=== PATIENT | female | born 1960 | race Caucasian/White ===

== ENCOUNTER 2022-12-05 09:41 | Outpatient (CLI) | payer BC, SELFPAY ==
--- NOTE | 2022-12-05 10:00 | W.ANESCHARGE ---
Anesthesia Charges Start Date/Time Anesthesia Start Date: 12/05/22 Anesthesia Start Time: 10:36 Stop Date/Time Anesthesia Stop Date: 12/05/22 Anesthesia Stop Time: 11:33
--- NOTE | 2022-12-05 11:36 | W.ANESCHARGE ---
Anesthesia Charges Start Date/Time Anesthesia Start Date: 12/05/22 Anesthesia Start Time: 10:36 Stop Date/Time Anesthesia Stop Date: 12/05/22 Anesthesia Stop Time: 11:33
== END 2022-12-05 09:42 | disposition home or self-care (01) ==
LOC: OP CLINIC 09:42
PROVIDERS: PCP Family Medicine; Visit Provider Surgery
DX: D50.9 Iron deficiency anemia, unspecified (principal); K63.5 Polyp of colon; K92.2 Gastrointestinal hemorrhage, unspecified; K22.89 Other specified disease of esophagus; K44.9 Diaphragmatic hernia without obstruction or gangrene; K29.70 Gastritis, unspecified, without bleeding
CPT/HCPCS: 43239; 45385; 813; 88305; J2704; J3490

== ENCOUNTER 2023-04-25 11:06 | Outpatient (CLI) | payer BC, SELFPAY ==
[2023-04-25 11:27] VITALS: BP 102/64; PULSE 88; RESP 18; O2SAT 90
[2023-04-25] MEDS: TETRACAINE 0.5% OPHTH 1 DROP EYE-BOTH ×3 (11:31→11:51)
[2023-04-25] MEDS: BRIMONIDINE TARTRATE 0.2% OPHTH 1 DROP EYE-BOTH ×2 (11:34→12:02)
--- NOTE | 2023-04-25 12:16 | W.PM.OPTPROC ---
Procedure Note Date of procedure: 04/25/23 Will [facility] bill your pro fee for this procedure?: Yes Procedure Description: SURGEON: Esperanza Romero MD PREOPERATIVE DIAGNOSIS: Posterior capsular opacity, right and left eye POSTOPERATIVE DIAGNOSIS: Posterior capsular opacity, right and left eye PROCEDURE: YAG laser capsulotomy, both eyes ANESTHESIA: Topical. ESTIMATED BLOOD LOSS: None PATHOLOGY SPECIMEN: None COMPLICATIONS: None INDICATIONS: See consult note for details. The risks, benefits and alternatives of the procedure were explained to the patient, who elected to proceed and signed informed consent to do so. PROCEDURE: The patient was brought to the pre-holding area where the right and left eyes were identified as the operative eyes. I placed my initials above the eyes. The following was given in both eyes: The patient received 2 sets of 1 drop of 0.5% tetracaine and 1 drop of 1% tropicamide. They also received 1 drop of 0.2% brimonidine. They received 1 drop of 0.5% tetracaine immediately prior to bringing them back for the procedure. The patient was then brought to the procedure room where the right and left eyes were again identified as the operative eyes. A YAG Tommy capsulotomy lens was placed on the right eye. The laser was administered using a total number of 10 shots with an energy of 2.4 mJ per shot for a total energy of 24 mJ. The patient tolerated the procedure well. A YAG Tommy capsulotomy lens was placed on the left eye. The laser was administered using a total number of 10 shots with an energy of 2.4 mJ per shot for a total energy of 24 mJ. The patient tolerated the procedure well. DISPOSITION: The patient was taken back to the pre-holding area and given 1 drop of 0.2% brimonidine in both eyes. They were discharged to home in stable condition. The patient was instructed to call me or go to the emergency department with any sudden change, including dramatic loss of vision, severe pain in the eye or eyebrow region, nausea, or vomiting. The patient was instructed to use the 0.2% brimonidine 1 drop 2 times a day in both eyes for 1 week. The patient will follow up in the clinic in 1-2 weeks.
== END 2023-04-25 12:02 | disposition home or self-care (01) ==
LOC: EYE PRC 11:07
PROVIDERS: PCP Family Medicine; Visit Provider Ophthalmology
DX: H26.9 Unspecified cataract (principal)
CPT/HCPCS: 66821; A9270

== ENCOUNTER 2023-11-29 17:17 | Emergency (ER) | payer BC, SELFPAY ==
[2023-11-29] VITALS (13 sets, daily range): BP systolic 104; BP diastolic 56; PULSE 63–107; RESP 24–26; TEMP 36.2; O2SAT 90–97; BMI 32.9
--- NOTE | 2023-11-29 17:52 | CRLHL7_ITS ---
For Patients: As a result of the Century Cures Act, medical imaging exams and procedure reports are released immediately into your electronic medical record. You may view this report before your referring provider. If you have questions, please contact your health care provider. INDICATION: Dyspnea. TECHNIQUE: Chest radiograph, 1 view. COMPARISON: None. FINDINGS: Cardiovascular/Mediastinum: Normal heart size. Mediastinal surgical clips. Lungs: No focal consolidation. Patchy ill-defined opacification of the right lower lung zone. Linear bandlike opacifications of the lungs bilaterally, likely subsegmental atelectasis and/or scarring. Airways: Trachea remains midline. Pleura: No pleural effusions or pneumothorax. Bones: Median sternotomy wires. No acute osseous abnormalities. Upper abdomen: Unremarkable. IMPRESSION: There may be a subtle, patchy ill-defined opacification of the right lower lung zone may represent atelectasis versus developing pneumonia in the appropriate clinical setting. Otherwise, no acute cardiopulmonary process. Dictated by Randal Aguilar MD @ 11/29/2023 6:57:08 PM (Electronically Signed)
--- NOTE | 2023-11-29 17:54 | ED_ITS ---
HPI - SOB/Dyspnea General Chief Complaint: Shortness of Breath/Dyspnea Stated Complaint: COPD episode-diff breathing Time Seen by Provider: 11/29/23 17:23 History of Present Illness HPI Narrative: This 63-year-old female comes in reporting shortness of breath that is worsened recently. She has COPD and continues to smoke. She does have oxygen at home and uses it at 3 L as needed but not continuously typically. She has had more need to use it during the day recently. She is reporting a productive cough. She arrives with oximetry at 92% on 3 L nasal cannula. She does have use of accessory muscles for breathing initially. She states that she was hospitalized last fall at the [facility] and will not go back there because her insurance does not cover it. We do not have any prior records here. Related Data Home Medications ?Medication ?Instructions ?Recorded ?Confirmed albuterol sulfate 90 mcg/actuation inhalation 11/29/23 aerosol inhaler citalopram 40 mg tablet 40 mg PO DAILY 11/29/23 11/29/23 ezetimibe 10 mg tablet 10 mg PO DAILY 11/29/23 11/29/23 fenofibrate nanocrystallized 145 145 mg PO DAILY 11/29/23 11/29/23 mg tablet gabapentin 300 mg capsule mg PO 3XD 11/29/23 olmesartan 20 mg tablet PO 11/29/23 pantoprazole 40 mg tablet,delayed 40 mg PO BID 11/29/23 11/29/23 release rosuvastatin 40 mg tablet 40 mg PO DAILY 11/29/23 11/29/23 semaglutide 1 mg/dose (4 mg/3 mL) mg subcut 11/29/23 subcutaneous pen injector (Ozempic) umeclidinium 62.5 mcg-vilanterol 1 ea inhalation DAILY 11/29/23 11/29/23 25 mcg/actuation powdr for inhalation (Anoro Ellipta) Previous Rx's ?Medication ?Instructions ?Recorded methylprednisolone 4 mg tablets in See Rx Instructions PO .COMPLEX 11/29/23 a dose pack (Medrol (Ganga)) #21 ea Allergies Allergy/AdvReac Type Severity Reaction Status Date / Time lisinopril Allergy Cough Verified 12/05/22 11:23 lohexal Allergy Mild Rash Uncoded 12/05/22 11:23 Review of Systems Status of ROS: Reports: 10 or more systems reviewed and unremarkable except as noted in History and below Narrative: Constitutional: No fevers, no weight gain or loss. Eyes: No discharge. No vision changes. HENT: No congestion, no sore throat, no ear pain. Cardiovascular: No chest pain, no palpitations. Respiratory: Shortness of breath with productive cough. Gastrointestinal: No abdominal pain, no vomiting, no diarrhea. Genitourinary: No dysuria, no hematuria. Musculoskeletal: Normal range of motion. Skin: No rashes, no pruritis. Neurological: No dizziness, weakness, sensory change, speech change. Endo/Heme/Allergies: No bruising or bleeding. No polydipsia. Pysch: no suicidality, no anxiety, no insomnia. All other systems reviewed and are negative. Exam Narrative: Exam Narrative: Constitutional: Well-developed, well-nourished, no acute distress. HEENT: Normocephalic, atraumatic. Neck: Normal range of motion. Nontender. Supple. Heart: Regular. No murmurs. Borderline tachycardia. Intact distal pulses. Lungs: Bilateral expiratory wheezes with some decreased air movement. Use of accessory muscles for breathing. Abdomen: Normal bowel sounds. Nontender. No rebound tenderness. Genitalia: Deferred. Back: No midline tenderness. Normal range of motion. Extremities: Normal range of motion. No injury. Skin: Intact. No rash. Warm. No erythema or pallor. Neurologic: No altered sensation. No weakness. Alert and oriented. Psychiatric: No suicidality. No anxiety or depression. No insomnia. Nursing notes and vitals signs are reviewed. Const: Vital Signs, click to edit/add: Vital Signs - 24 hr 11/29/23 17:35 11/29/23 17:37 11/29/23 17:45 Temperature 97.1 F L Pulse Rate 101 H 102 H Pulse Rate [Pulse Oximeter] 107 H Respiratory Rate 26 H Blood Pressure [Ri ght Upper Arm] 104/56 L Pulse Oximetry 90 90 92 Oxygen Delivery Me thod Nasal Cannula Room Air Nasal Cannula Oxygen Flow Rate 3 3 3 11/29/23 18:00 11/29/23 18:15 11/29/23 18:23 Temperature Pulse Rate 100 100 Pulse Rate [Pulse Oximeter] Respiratory Rate Blood Pressure [Ri ght Upper Arm] Pulse Oximetry 90 94 93 Oxygen Delivery Me thod Nasal Cannula Nasal Cannula Room Air Oxygen Flow Rate 3 3 3 11/29/23 18:30 11/29/23 18:45 11/29/23 19:00 Temperature Pulse Rate 97 88 86 Pulse Rate [Pulse Oximeter] Respiratory Rate Blood Pressure [Ri ght Upper Arm] Pulse Oximetry 90 90 92 Oxygen Delivery Me thod Nasal Cannula Nasal Cannula Nasal Cannula Oxygen Flow Rate 3 3 3 11/29/23 19:15 11/29/23 19:37 11/29/23 19:45 Temperature Pulse Rate 82 88 63 Pulse Rate [Pulse Oximeter] Respiratory Rate Blood Pressure [Ri ght Upper Arm] Pulse Oximetry 93 90 95 Oxygen Delivery Me thod Nasal Cannula Nasal Cannula Oxygen Flow Rate 3 3 11/29/23 20:00 Temperature Pulse Rate 80 Pulse Rate [Pulse Oximeter] Respiratory Rate Blood Pressure [Ri ght Upper Arm] Pulse Oximetry 97 Oxygen Delivery Me thod Oxygen Flow Rate Course Vital Signs Vital signs: Initial Vital Signs Temperature 97.1 F L 11/29/23 17:35 Temperature Source Temporal Artery Scan 11/29/23 17:35 Pulse Rate 107 H 11/29/23 17:35 Respiratory Rate 26 H 11/29/23 17:35 Blood Pressure 104/56 L 11/29/23 17:35 Blood Pressure Mean 72 11/29/23 17:35 Blood Pressure Position Sitting 11/29/23 17:35 Pulse Oximetry 90 11/29/23 17:35 Oxygen Delivery Method Nasal Cannula 11/29/23 17:35 Oxygen Flow Rate 3 11/29/23 17:35 Vital Signs Temperature 97.1 F L 11/29/23 17:35 Pulse Rate 107 H 11/29/23 17:35 Respiratory Rate 26 H 11/29/23 17:35 Blood Pressure 104/56 L 11/29/23 17:35 Pulse Oximetry 90 11/29/23 17:35 Oxygen Delivery Method Nasal Cannula 11/29/23 17:35 Oxygen Flow Rate 3 11/29/23 17:35 Temperature 97.1 F L 11/29/23 17:35 Pulse Rate 80 11/29/23 20:00 Respiratory Rate 26 H 11/29/23 17:35 Blood Pressure 104/56 L 11/29/23 17:35 Pulse Oximetry 97 11/29/23 20:00 Oxygen Delivery Method Nasal Cannula 11/29/23 19:37 Oxygen Flow Rate 3 11/29/23 19:37 Medications Administered Medications: Discontinued Medications Generic Name Dose Route Start Last Admin Trade Name Kiah PRN Reason Stop Dose Admin Albuterol/Ipratropium 1 neb 11/29/23 17:51 11/29/23 18:11 Iprat-Albut 0.5-2.5 Mg/3 Ml Neb IH 11/29/23 17:52 1 neb ONCE ONE Administration Methylprednisolone Sodium Succinate 125 mg 11/29/23 17:51 11/29/23 18:11 Methylprednisolone Sod Succ 62.5 Mg/Ml (125) IVP 11/29/23 17:52 125 mg ONCE ONE Administration MDM - SOB/Dyspnea MDM Narrative Medical decision making narrative: This patient comes in reporting worsening shortness of breath and cough. She has COPD and continues to smoke. She does arrive with oximetry at around 90-92% on 3 L. she also had increased heart rate and respiratory rate. An IV was established and labs are acquired. She did receive an IV dose of Solu-Medrol 125 mg and upon recheck states that she is feeling better. Over the course of her stay here she did have decreased of heart rate down to 80 beats per minute and her oximetry up to 97% on 3 L nasal cannula. Chest x-ray is obtained and shows possibility of an infiltrate on top of her COPD condition. Labs are acquired and a troponin is obtained which is elevated at 0.11. This was read checked and remains stable at the same 0.11. Her EKG is not showing any ST or T-wave abnormalities. D-dimer returned elevated so a CT scan with IV contrast is obtained and shows no evidence of infiltrate or pulmonary embolism. The patient states that she is feeling better. She is okay to be discharged home and encouraged to stop smoking. She did receive a prescription for a Medrol Dosepak. She has a follow-up appointment with her primary physician tomorrow. Lab Data Labs: Lab Results 11/29/23 11/29/23 11/29/23 Range/Units 17:35 17:40 20:00 WBC 13.97 H (4.50-11.00) K/uL RBC 4.83 (4.00-5.20) m/uL Hgb 14.6 (12.0-16.0) gm/dL Hct 44.5 (33.0-51.0) % MCV 92 (80-100) fL MCH 30 (26-34) pg MCHC 33 (32-36) gm/dL RDW Coeff of Leroy 12.8 (11.5-15.5) % Plt Count 201 (140-440) K/uL Neut % (Auto) 89.3 H (42.0-72.0) % Lymph % (Auto) 3.6 L (20-44) % [place] % (Auto) 5.4 (0.0-11.0) % Eos % (Auto) 1.4 (0.0-7.0) % Baso % (Auto) 0.1 (0.0-3.0) % Neut # (Auto) 12.50 H (1.7-7.0) K/uL Lymph # (Auto) 0.50 L (0.90-2.90) K/uL [place] # (Auto) 0.80 (0.00-0.90) K/UL Eos # (Auto) 0.20 (0.00-0.50) K/uL Baso # (Auto) 0.00 (0.00-0.30) K/uL Abs Immat Gran (auto) 0.00 (0.00-0.30) K/uL Imm/Tot Granulo (auto) 0.2 % D-Dimer Quant (PE/DVT) 1.34 H (0.00-0.50) ug/ml Sodium 132 L (135-149) mmol/L Potassium 4.0 (3.6-5.1) mmol/L Chloride 104 (96-114) mmol/L Carbon Dioxide 25 (20-32) mmol/L Anion Gap 3 L (7-15) mEq/L BUN 27 (7-30) mg/dL Creatinine 1.1 (0.5-1.5) mg/dL Estimated Creat Clear 41.40 Estimated GFR 56 ml/min Glucose 127 H (60-115) mg/dL Calcium 9.1 (8.4-10.6) mg/dL NT-Pro-B Natriuret Pep 1420 pg/mL POC Troponin I 0.11 H 0.11 H (0.01-0.04) ng/ml Imaging Data Chest x-ray: Radiologist's impression: There may be a subtle, patchy ill-defined opacification of the right lower lung zone may represent atelectasis versus developing pneumonia in the appropriate clinical setting. Otherwise, no acute cardiopulmonary process. CT scan - chest: Radiologist's impression: Emphysematous changes predominantly within the upper lobes with peripheral basilar atelectasis and parenchymal scar. Postoperative change of the right upper lobe status post likely wedge resection. No evidence of filling defect to suggest pulmonary embolus. ECG Data Attestation: I personally reviewed and interpreted this ECG as follows: Interpretation: Normal sinus rhythm. Rate is 96 beats per minute. There are no specific ST or T-wave abnormalities. Discharge Plan Discharge Clinical Impression: COPD exacerbation Patient Disposition: Home w/ Parent or Adult Condition: Improved Additional Instructions: Take medication as prescribed. Smoking cessation is required for improvement in your breathing. Follow up with MD as scheduled tomorrow or return if worsening. Prescriptions: New methylprednisolone [Medrol (Ganga)] 4 mg tablets,dose pack See Rx Instructions .ROUTE .COMPLEX Qty: 21 0RF Rx Instructions: orally per package directions No Action citalopram 40 mg tablet 40 mg PO DAILY pantoprazole 40 mg tablet,delayed release (DR/EC) 40 mg PO BID gabapentin 300 mg capsule PO 3XD albuterol sulfate 90 mcg/actuation HFA aerosol inhaler inhalation olmesartan 20 mg tablet PO ezetimibe 10 mg tablet 10 mg PO DAILY rosuvastatin 40 mg tablet 40 mg PO DAILY fenofibrate nanocrystallized 145 mg tablet 145 mg PO DAILY Anoro Ellipta 62.5-25 mcg/actuation blister with device 1 ea inhalation DAILY Ozempic 1 mg/dose (4 mg/3 mL) pen injector subcut Follow Up/Referrals: Roshan Gandhi MD [Referring] - Stand Alone Forms: [employer] Info Instructions
[2023-11-29 17:58] LABS: Troponin, Point-of-Care* 0.11 ng/ml (0.01-0.04)
[2023-11-29 18:08] LABS: Basophils Percent Auto 0.1 % (0.0-3.0); Eosinophils Percent Auto 1.4 % (0.0-7.0); Hematocrit 44.5 % (33.0-51.0); Hemoglobin* 14.6 gm/dL (12.0-16.0); Immature Granulocytes Pct Auto 0.2 %; Lymphocytes Percent Auto 3.6 % (20-44); Mean Corpuscular HGB Conc 33 gm/dL (32-36); Mean Corpuscular Hemoglobin 30 pg (26-34); Mean Corpuscular Volume 92 fL (80-100); Monocytes Percent Auto 5.4 % (0.0-11.0); Neutrophils Percent Auto 89.3 % (42.0-72.0); Platelet Count* 201 K/uL (140-440); RDW Coefficient of Variation % 12.8 % (11.5-15.5); Red Blood Count 4.83 m/uL (4.00-5.20); White Blood Count* 13.97 K/uL (4.50-11.00)
[2023-11-29 18:10] LABS: Slide Review Reflex No
[2023-11-29] MEDS: IPRAT-ALBUT 0.5-2.5 MG/3 ML NEB 1 NEB IH (18:11)
[2023-11-29] MEDS: METHYLPREDNISOLONE SOD SUCC 62.5 MG/ML (125) 125 MG IVP (18:11)
[2023-11-29 18:22] LABS: Chloride* 104 mmol/L (96-114)
[2023-11-29 18:23] LABS: Sodium* 132 mmol/L (135-149)
[2023-11-29 18:25] LABS: Creatinine* 1.1 mg/dL (0.5-1.5); Estimated Glomerular Filt Rate 56 ml/min
[2023-11-29 18:26] LABS: Anion Gap 3 mEq/L (7-15); Blood Urea Nitrogen* 27 mg/dL (7-30); Calcium* 9.1 mg/dL (8.4-10.6); Carbon Dioxide* 25 mmol/L (20-32); Glucose* 127 mg/dL (60-115)
[2023-11-29 18:28] LABS: D Dimer Quantitative* 1.34 ug/ml (0.00-0.50)
[2023-11-29 18:36] LABS: NT Pro B Type NatriureticPept* 1420 pg/mL
--- NOTE | 2023-11-29 19:06 | CRLHL7_ITS ---
For Patients: As a result of the Century Cures Act, medical imaging exams and procedure reports are released immediately into your electronic medical record. You may view this report before your referring provider. If you have questions, please contact your health care provider. Indication: Shortness of breath, COPD, elevated D-dimer Technique: Volumetric multidetector CT images of the chest were obtained after the administration of IV contrast. Ninety five cc Isovue three seventy low osmolar intravenous contrast Comparison: None available. Findings: The thoracic inlet and thyroid gland are unremarkable. The thoracic aorta is nonaneurysmal with scattered atherosclerotic calcification and postoperative change status post median sternotomy wires with coronary artery bypass grafting changes. There is no central filling defect to suggest pulmonary embolism. There is no mediastinal, hilar or axillary adenopathy. [id number] central bronchial thickening. Moderate to severe emphysematous changes of the upper greater than lower lobes with postoperative change of the right upper lobe status post wedge resection. There is peripheral parenchymal scarring and minimal basilar atelectasis. No pneumothorax or pleural effusion. Nodular airspace opacities are seen within the peripheral left upper lobe the largest measuring five point four seen on series 11, image 21. The partially visualized upper abdominal viscera are within normal limits. The thoracic vertebral body heights are grossly maintained with mild degenerative disc disease. Impression: Emphysematous changes predominantly within the upper lobes with peripheral basilar atelectasis and parenchymal scar. Postoperative change of the right upper lobe status post likely wedge resection. No evidence of filling defect to suggest pulmonary embolus. Please note that all CT scans at this facility use dose modulation, iterative reconstruction, and/or weight-based dosing when appropriate to reduce radiation dose to as low as reasonably achievable. Dictated by Mehrdad Cervantes MD @ 11/29/2023 8:16:16 PM (Electronically Signed)
[2023-11-29 20:06] LABS: Troponin, Point-of-Care* 0.11 ng/ml (0.01-0.04)
== END 2023-11-29 20:45 | disposition home or self-care (01) ==
PROVIDERS: Emergency Provider Emergency Medicine Emergency Medical Services
DX: J44.1 Chronic obstructive pulmonary disease with (acute) exacerbation (principal)
CPT/HCPCS: 36415; 71045; 71275; 80048; 83880; 84484; 85025; 85379; 94640; 96374; 99284; 99285; J2919; Q9967